=== PATIENT | female | born 1985 | race Caucasian/White ===

== ENCOUNTER 2018-12-06 22:43 | Emergency (ER) | payer SELFPAY ==
[~2018-12-06] VITALS: Ht 149.9 cm; Wt 63.6 kg
[2018-12-06 23:55] VITALS: BP 121/81
[2018-12-07] MEDS ORDERED: IBUPROFEN 800 MG TABLET PO ONE
== END 2018-12-07 00:27 | disposition home or self-care (01) ==
LOC: EMS 22:44
DX: N63.24 Unspecified lump in the left breast, lower inner quadrant (principal); N64.4 Mastodynia